=== PATIENT | male | born 1975 | race Caucasian/White ===

== ENCOUNTER 2018-11-16 14:11 | Emergency (ER) | payer OTHER ==
[2018-11-16 15:57] VITALS: BP 132/76
--- NOTE | 2018-11-16 17:04 | ED ---
Lower Extremity - HPI Summary HPI Summary: Patient is a 42-year-old male who presents emergency department for right knee injury. Patient and his family are visiting from [place] and they were at [place] today. Patient [place] when [place] and his right knee twisted. Patient had instant pain to his right knee and was unable to walk on it. He denies head injury or any other injuries. He denies numbness, tingling or weakness and right lower leg. Symptoms are mild in severity. No current modifying factors. Patient denies past medical history. - History of Current Complaint Chief Complaint: EDExtremityLower Stated Complaint: RIGHT KNEE DISPLACEMENT PER EMS Time Seen by Provider: 11/16/18 14:24 Hx Obtained From: Patient Pain Intensity: 2 Pain Scale Used: 0-10 Numeric - Allergies/Home Medications Allergies/Adverse Reactions: Allergies Allergy/AdvReac Type Severity Reaction Status Date / Time No Known Allergies Allergy Verified 11/16/18 14:21 PMH/Surg Hx/FS Hx/Imm Hx Previously Healthy: Yes Infectious Disease History: No Infectious Disease History: Reports: Travel[place] Outside the [place] in Last 30 Days - [place] - Family History Known Family History: Positive: Non-Contributory - Social History Occupation: Employed Full-time Lives: With Family Alcohol Use: None Substance Use Type: Reports: None Smoking Status (MU): Never Smoked Tobacco Review of Systems Positive: Other - right knee pain Skin: Negative Neurological: Negative Negative: Weakness, Paresthesia, Numbness All Other Systems Reviewed And Are Negative: Yes Physical Exam Triage Information Reviewed: Yes Vital Signs On Initial Exam: Initial Vitals Temp Pulse Resp BP Pulse Ox 97.3 F 64 16 129/78 100 11/16/18 14:19 11/16/18 14:19 11/16/18 14:19 11/16/18 14:19 11/16/18 14:19 Vital Signs Reviewed: Yes Appearance: Positive: Well-Appearing - Pt. lying on bed in NAD. Family present. Skin: Positive: Warm, Dry Head/Face: Positive: Normal Head/Face Inspection Eyes: Positive: Normal, EOMI Neck: Positive: Supple Musculoskeletal: Positive: Other - Effusion noted to right knee. Good pedal pulse. No sensory deficits. Limited ROM secondary to pain. Patella appears to be high riding. Pt. is unable to extend at the knee. No proximal or distal injuries. Neurological: Positive: Normal, CN Intact II-III Procedures - Splinting Right Lower Extremity Pre-Made Type: knee immobilizer Pre-Proc Neuro Vasc Exam: normal Post-Proc Neuro Vasc Exam: normal Diagnostics - Vital Signs Vital Signs Temp Pulse Resp BP Pulse Ox 11/16/18 15:56 98.7 F 66 16 132/76 100 11/16/18 14:19 97.3 F 64 16 129/78 100 - Laboratory Lab Statement: Any lab studies that have been ordered have been reviewed, and results considered in the medical decision making process. Lower Extremity Course/Dx - Course Course Of Treatment: Patient presenting with right knee injury. X-rays unremarkable per radiology. Concerned for tendon rupture based on exam. We'll place knee immobilizer and crutches. Patient returning to [place] tomorrow. Patient's states they have an orthopedic surgeon he can follow up with. Advised pt. he will most likely need an MRI and potentially surgery. Advised ice and elevation. Small rx for pain medications provided. To return to ER if symptoms change or worsen. Pt. understands and agrees with plan. - Diagnoses Differential Diagnosis/HQI/PQRI: Positive: Contusion, Dislocation, Fracture ( Closed), Sprain, Strain Provider Diagnoses: Knee injury, Ruptured, tendon, patellar Discharge - Sign-Out/Discharge Documenting (check all that apply): Patient Departure Patient Received Moderate/Deep Sedation with Procedure: No - Discharge Plan Condition: Good Disposition: HOME Prescriptions: HYDROcodone/ACETAMIN 5-325 MG* [[place] 5-325 TAB*] 1 tab PO Q6H PRN #12 tab MDD 4 PRN Reason: Pain Ibuprofen TAB* [Motrin TAB* 800 MG] 800 mg PO Q6H #20 tab Patient Education Materials: Knee Pain (ED), Tendon Rupture (ED) Referrals: Jazlyn Farmer MD [Medical Doctor] - Additional Instructions: Schedule a follow up appointment with an orthopedic physician as soon as possible I am concerned you ruptured a tendon in your knee Wear immobilizer and use crutches Ice and elevate intermittently Pain medication as directed Return to ER if symptoms change or worsen - Billing Disposition and Condition Condition: GOOD Disposition: Home
== END 2018-11-16 15:56 | disposition home or self-care (01) ==
LOC: ED 14:11
DX: S76.111A Strain of right quadriceps muscle, fascia and tendon, initial encounter (principal); W10.9XXA Fall (on) (from) unspecified stairs and steps, initial encounter; Y92.89 Other specified places as the place of occurrence of the external cause
CPT/HCPCS: 99282